=== PATIENT | male | born 1975 | race Caucasian/White ===

== ENCOUNTER 2019-10-13 14:13 | Emergency (ER) | payer SELFPAY ==
--- NOTE | 2019-10-13 15:01 | ER Document Report ---
HPI - HPI Patient complains to provider of: Dental pain Time Seen by Provider: 10/13/19 14:58 Onset: Other - 3 days ago Quality of pain: Achy Context: This 44-year-old male presents emergency department left upper dental pain that started 3 days ago. Reports it hurts when he eats or drinks. Patient denies fever vomiting diarrhea. Reports he recently moved here and needs to find a dentist. Associated Symptoms: None Exacerbated by: Denies Relieved by: Denies Similar symptoms previously: Yes Recently seen / treated by doctor: No Past Medical History - General Information source: Patient - Social History Smoking Status: Unknown if Ever Smoked Family History: None Patient has suicidal ideation: No Patient has homicidal ideation: No - Medical History Medical History: Negative Surgical Hx: Negative Vertical Provider Document - INFECTION CONTROL TRAVEL OUTSIDE OF THE [place] IN LAST 30 DAYS: No - HEENT HEENT: Atraumatic, Normocephalic Mouth Diagram: 1 - Patient complains of pain no obvious swelling no pustule no erythema opens mouth wide no trismus good clear voice no Ludwigs - NECK Neck: Normal Inspection, Supple. negative: Lymphadenopathy-Left, Lymphadenopathy-Right - RESPIRATORY Respiratory: Breath Sounds Normal, No Respiratory Distress - CARDIOVASCULAR Cardiovascular: Regular Rate - MUSCULOSKELETAL/EXTREMETIES Musculoskeletal/Extremeties: MAEW, FROM - NEURO Level of Consciousness: Awake, Alert, Appropriate Motor/Sensory: No Motor Deficit - DERM Integumentary: Warm, Dry Course - Re-evaluation Re-evalutation: 10/13/19 15:19 Patient was instructed on penicillin. He reports he is taken penicillin past without problems. Patient was also instructed on the [facility]. He was instructed take Tylenol or Motrin for the pain call the dentist tomorrow for an appointment. He verbalized understanding to all instructions - Vital Signs Vital signs: Temp Pulse Resp BP Pulse Ox 97.6 F 63 18 103/62 99 10/13/19 14:37 10/13/19 14:37 10/13/19 14:37 10/13/19 14:37 10/13/19 14:37 Discharge - Discharge Clinical Impression: Pain, dental Condition: Stable Disposition: HOME, SELF-CARE Instructions: [facility], Penicillin V K ([facility]), Toothache ([facility]) Additional Instructions: *You have been evaluated for dental pain *Take medications as prescribed *Follow up with dentist within one week *Return to ED for worsening condition, changes, needs Prescriptions: Penicillin V Potassium [Penicillin Vk 500 mg Tablet] 500 mg PO BID #20 tablet
[2019-10-13 15:10] VITALS: BP 90/56
== END 2019-10-13 15:24 | disposition home or self-care (01) ==
LOC: ER 14:13
DX: K08.9 Disorder of teeth and supporting structures, unspecified (principal)
CPT/HCPCS: 99282

== ENCOUNTER 2020-03-29 14:43 | Emergency (ER) | payer SELFPAY ==
--- NOTE | 2020-03-29 15:32 | ER Document Report ---
ED Medical Screen (RME) - General Chief Complaint: Abscess Stated Complaint: ABSCESS/LOWER BACK Time Seen by Provider: 03/29/20 15:26 Mode of Arrival: Ambulatory Information source: Patient Notes: 45-year-old male presented to ED for abscess to the lower right back. He states is been there for a week. He states it popped about 4 to 5 days ago and then in the last 24 to 48 hours it is swollen back up and is now painful again. He states his pain is fluctuated between a 2 and a 4 right now it is about a 3. He states he smokes 1/2 pack a day does not drink alcohol does smoke pot occasion ally. Only medical history is a fractured nose. Is alert oriented respirations regular nonlabored speaking in full sentences. I have greeted and performed a rapid initial assessment of this patient. A comprehensive ED assessment and evaluation of the patient, analysis of test results and completion of medical decision making process will be conducted by an additional ED providers. TRAVEL OUTSIDE OF THE [place] IN LAST 30 DAYS: No - Related Data Allergies/Adverse Reactions: No Known Allergies Allergy (Verified 03/29/20 15:30) Past Medical History - Social History Chew tobacco use (# tins/day): No Frequency of alcohol use: Occasional Drug Abuse: Marijuana Physical Exam - Vital signs Vitals: Temp Pulse Resp BP Pulse Ox 99.4 F 61 18 110/60 98 03/29/20 15:27 03/29/20 15:27 03/29/20 15:27 03/29/20 15:27 03/29/20 15:27 Course - Vital Signs Vital signs: Temp Pulse Resp BP Pulse Ox 99.7 F 61 18 110/60 98 03/29/20 15:28 03/29/20 15:27 03/29/20 15:27 03/29/20 15:27 03/29/20 15:27
[2020-03-29] MEDS ORDERED: LIDOCAINE 1%/EPINEPHRINE INJ 20 ML VIAL INJ ONE (18:39)
--- NOTE | 2020-03-29 18:41 | ER Document Report ---
ED General - General Chief Complaint: Abscess Stated Complaint: ABSCESS/LOWER BACK Time Seen by Provider: 03/29/20 15:26 Mode of Arrival: Ambulatory Notes: CHIEF COMPLAINT: Abscess to the back for several weeks HPI: 45-year-old male presenting to the emergency department complaining of a tender swollen area to the right lower back over the last several weeks. Patient states the area has drained intermittently but has become more painful over the last for 5 days. No fevers. ROS: See HPI - all other systems were reviewed and are otherwise negative Constitutional: no fever Integumentary: no rash, positive abscess Allergy: no hives Musculoskeletal: no extremity pain or swelling MEDICATIONS: I agree with the patient medications as charted by the RN. ALLERGIES: I agree with the allergies as charted by the RN. PAST MEDICAL HISTORY/PAST SURGICAL HISTORY: Reviewed and agree as charted by RN. SOCIAL HISTORY: Reviewed and agree as charted by RN. FAMILY HISTORY: No significant familial comorbid conditions directly related to patient complaint EXAM: Reviewed vital signs as charted by RN. CONSTITUTIONAL: Alert and oriented and responds appropriately to questions. Well-appearing; well-nourished HEAD: Normocephalic; atraumatic EYES: PERRL; Conjunctivae clear, sclerae non-icteric ENT: normal nose; no rhinorrhea; moist mucous membranes NECK: Supple without meningismus CARD: symmetric distal pulses RESP: Normal chest excursion without splinting or tachypnea ABD/GI: non-distended BACK: The back appears normal EXT: Normal ROM in all joints; non-tender to palpation; no cyanosis, no effusions, no edema SKIN: Normal color for age and race; warm; dry; good turgor; there is a raised erythematous area with a small fluctuant center measuring approximately 3 cm total diameter without significant surrounding erythema. This is in the right lower lumbar back NEURO: Moves all extremities equally; Motor and sensory function intact PSYCH: The patient's mood and manner are appropriate. Grooming and personal hygiene are appropriate. MDM: 45-year-old male with a small abscess to the right lower back. Small amount of induration and fluctuance. I did incise the area and packed the area. Will place patient on Bactrim, pain medication, follow-up with a PCP or he may remove the packing in 3 days TRAVEL OUTSIDE OF THE [place] IN LAST 30 DAYS: No - Related Data Allergies/Adverse Reactions: No Known Allergies Allergy (Verified 03/29/20 15:30) Past Medical History - General Information source: Patient - Social History Smoking Status: Current Every Day Smoker Chew tobacco use (# tins/day): No Frequency of alcohol use: Occasional Drug Abuse: Marijuana Family History: None Patient has homicidal ideation: No Past Surgical History: Reports: Hx Nose Surgery Physical Exam - Vital signs Vitals: Temp Pulse Resp BP Pulse Ox 99.4 F 61 18 110/60 98 03/29/20 15:27 03/29/20 15:27 03/29/20 15:27 03/29/20 15:27 03/29/20 15:27 Course - Vital Signs Vital signs: Temp Pulse Resp BP Pulse Ox 99.7 F 61 18 110/60 98 03/29/20 15:28 03/29/20 15:27 03/29/20 15:27 03/29/20 15:27 03/29/20 15:27 Procedures - Incision and Drainage Right Lower Back Time completed: 19:07 Type: Simple Anesthetic type: 1% Lidocaine w/epi mL's of anesthetic: 1 Blade size: 11 I&D procedure: Betadine prep applied, Iodoform packing placed, Sterile dressing applied Incision Method: Incision made by scalpel Amount/type of drainage: Scant purulent less than 1 cc Discharge - Discharge Clinical Impression: Abscess of lower back Condition: Stable Disposition: HOME, SELF-CARE Instructions: Trimethoprim-Sulfa ([facility]), Abscess ([facility]) Additional Instructions: 1. packing out in 2-3 days, the abscess was superficial you may pull the packing yourself 2. follow up with your primary care provider for further evaluation in 2-3 days 3. medicines as prescribed, take Adrian or Motrin for pain 4. return sooner for any worsening condition, increasing redness or onset of fever 5. apply warm compresses to the wound area 2-3 times daily Prescriptions: Sulfamethoxazole/Trimethoprim [Bactrim Ds Tablet] 2 tab PO BID #28 tablet Naproxen 500 mg PO BID PRN #14 tablet PRN Reason: Referrals: JOHN HARRY MD [ACTIVE STAFF] - Follow up as needed
[2020-03-29] MEDS ORDERED: ONDANSETRON 4 MG TAB.RAPDIS ONE (18:57)
[2020-03-29] MEDS ORDERED: SULFAMETHOXAZOLE/TRIMETHOPRIM 800-160 MG TABLET PO ONE (19:11)
[2020-03-29] MEDS ORDERED: HYDROCODONE/ACETAMINOPHEN 5-325 MG (6 TAB/ER DISP) PO PRN (19:11)
[2020-03-29 19:48] VITALS: BP 103/55
== END 2020-03-29 19:51 | disposition home or self-care (01) ==
LOC: ER 14:43
DX: L02.212 Cutaneous abscess of back [any part, except buttock and flank] (principal); F17.200 Nicotine dependence, unspecified, uncomplicated; F12.10 Cannabis abuse, uncomplicated
CPT/HCPCS: 99282; 10060; S0119; J3490

== ENCOUNTER 2020-04-01 12:24 | Emergency (ER) | payer SELFPAY ==
--- NOTE | 2020-04-01 13:02 | ER Document Report ---
ED Medical Screen (RME) - General Chief Complaint: Wound Recheck Stated Complaint: ABSCESS/LOWER BACK Time Seen by Provider: 04/01/20 12:55 Notes: Patient is a 45-year-old male who presents to the emergency department with an abscess recheck. He was here 3 days ago and had an abscess drained and packed. Patient states that he has not had the packing removed, nor did he see it when he removed the dressing. Patient admits to chills and cold sweats. Exam: Abscess noted to right lower back. Surrounding cellulitis noted. I have greeted and performed a rapid initial assessment of this patient. A comprehensive ED assessment and evaluation of the patient, analysis of test results and completion of medical decision making process will be conducted by an additional ED providers. TRAVEL OUTSIDE OF THE [place] IN LAST 30 DAYS: No - Related Data Allergies/Adverse Reactions: No Known Allergies Allergy (Verified 04/01/20 12:50) Past Medical History - Social History Chew tobacco use (# tins/day): No Frequency of alcohol use: None Drug Abuse: Marijuana Past Surgical History: Reports: Hx Nose Surgery Physical Exam - Vital signs Vitals: Temp Pulse Resp BP Pulse Ox 99.2 F 87 16 103/65 97 04/01/20 12:28 04/01/20 12:28 04/01/20 12:28 04/01/20 12:28 04/01/20 12:28 Course - Vital Signs Vital signs: Temp Pulse Resp BP Pulse Ox 99.2 F 87 16 103/65 97 04/01/20 12:51 04/01/20 12:28 04/01/20 12:28 04/01/20 12:28 04/01/20 12:28
[2020-04-01 13:20] LABS: ABSOLUTE LYMPHOCYTES (AUTO) 1.4 10^3/uL (0.5-4.7); ABSOLUTE MONOCYTES (AUTO) 0.5 10^3/uL (0.1-1.4); ABSOLUTE NEUT (AUTO) 7.6 10^3/uL (1.7-8.2); BASOPHILS % (AUTO) 0.2 % (0-2); EOSINOPHILS % (AUTO) 0.2 % (0-6); HEMATOCRIT 41.7 % (37.9-51.0); HEMOGLOBIN 14.6 g/dL (13.5-17.0); LYMPHOCYTES % (AUTO) 14.6 % (13-45); MEAN CORPUSCULAR HGB CONC 35.1 g/dL (32.0-36.0); MEAN CORPUSCULAR VOLUME 94 fl (80-97); MONOCYTES % (AUTO) 5.4 % (3-13); PLATELET COUNT 302 10^3/uL (150-450); RED BLOOD COUNT 4.44 10^6/uL (4.35-5.55); RED CELL DISTRIBUTION WIDTH 13.1 % (11.5-14.0); SEGMENTED NEUTROPHILS % (AUTO) 79.6 % (42-78); TOTAL CELLS COUNTED % (AUTO) 100 %; WHITE BLOOD COUNT 9.6 10^3/uL (4.0-10.5)
[2020-04-01 13:40] LABS: ANION GAP 7 (5-19); BLOOD UREA NITROGEN 22 mg/dL (7-20); CALCIUM 10.2 mg/dL (8.4-10.2); CARBON DIOXIDE 28 mmol/L (22-30); CHLORIDE 100 mmol/L (98-107); GLUCOSE 139 mg/dL (75-110); POTASSIUM 4.3 mmol/L (3.6-5.0)
[2020-04-01] MEDS ORDERED: LIDOCAINE 1%/EPINEPHRINE INJ 20 ML VIAL INJ ONE (16:37)
--- NOTE | 2020-04-01 16:40 | ER Document Report ---
ED General - General Chief Complaint: Wound Recheck Stated Complaint: ABSCESS/LOWER BACK Time Seen by Provider: 04/01/20 12:55 Primary Care Provider: LESLIE BELL MD [ACTIVE STAFF] - Follow up as needed DOREEN GERARDO MD [ACTIVE STAFF] - Follow up as needed Mode of Arrival: Ambulatory Information source: Patient TRAVEL OUTSIDE OF THE [place] IN LAST 30 DAYS: No - HPI Onset: Last week Onset/Duration: Gradual Quality of pain: Pressure, Throbbing Severity: Moderate Pain Level: 2 Associated symptoms: Chills, Fever, Other - swollen red area on low back Exacerbated by: Other - palpation of the area Relieved by: Denies Similar symptoms previously: Yes - Patient had an abscess in this area which was just incised. Recently seen / treated by doctor: Yes - Patient seen in this ER on 03/29/20 for an incision and drainage. Notes: 45 year old male with no significant PMH here in the ER concern of a worsening abscess on his low back. The patient was seen in this ER on and had an incision and drainage with packing placement of the area then. The patient is unsure if the packing has falling out or if it is still present in his wound. The patient says he has been having some chills and subjective fevers. - Related Data Allergies/Adverse Reactions: No Known Allergies Allergy (Verified 04/01/20 12:50) Past Medical History - General Information source: Patient - Social History Smoking Status: Current Every Day Smoker Chew tobacco use (# tins/day): No Frequency of alcohol use: None Drug Abuse: Marijuana Family History: Reviewed & Not Pertinent Patient has suicidal ideation: No Patient has homicidal ideation: No Past Surgical History: Reports: Hx Nose Surgery Review of Systems - Review of Systems Constitutional: Chills, Fever EENT: No symptoms reported Cardiovascular: No symptoms reported Respiratory: No symptoms reported Gastrointestinal: No symptoms reported Genitourinary: No symptoms reported Male Genitourinary: No symptoms reported Skin: Other - painful, red, swollen area in low back Hematologic/Lymphatic: No symptoms reported Neurological/Psychological: No symptoms reported -: Yes All other systems reviewed and negative Physical Exam - Vital signs Vitals: Temp Pulse Resp BP Pulse Ox 99.2 F 87 16 103/65 97 04/01/20 12:28 04/01/20 12:28 04/01/20 12:04/01/20 12:04/01/20 12:28 - Notes Notes: GENERAL: Well-appearing, well-nourished and in no acute distress. HEAD: Atraumatic, normocephalic. EYES: Pupils equal round and reactive to light, extraocular movements intact, sclera anicteric, conjunctiva are normal. ENT: External ears normal, nares patent, oropharynx clear without exudates. Moist mucous membranes. NECK: Normal range of motion, supple without lymphadenopathy or JVD. LUNGS: Breath sounds clear to auscultation bilaterally and equal. No wheezes rales or rhonchi. HEART: Regular rate and rhythm without murmurs, rubs or gallops. ABDOMEN: Soft, nontender, normoactive bowel sounds. No guarding, no rebound. No masses appreciated. EXTREMITIES: Normal range of motion, no pitting or edema. No clubbing or cyanosis. NEUROLOGICAL: Cranial nerves II through XII grossly intact. Normal speech, normal gait. PSYCH: Normal mood, normal affect. SKIN: Area of redness, warmth, and swelling about the size of a golf ball on his lower back. Otherwise skin is warm, dry, normal turgor, no rashes or lesions noted. Course - Re-evaluation Re-evalutation: 04/01/20 17:08 The patient has a sebaceous cyst of his low back which has become infected. It was just incised and drained several days ago. I re-incised the area today and drained more pus and more cystic material. There is still residual cystic material since the patient would not allow me to continue removing it all due to pain. The wound was left open for nursing to dress. The patient was told he needs to follow up with a Surgeon in the next few days for Surgical Excision of the whole area. The patient was told he will continue to have abscesses in this area until all of the cystic material is excised. The patient was told to cont inue taking his previously prescribed Bactrim and to use Tylenol and Motrin for pain. - Vital Signs Vital signs: Temp Pulse Resp BP Pulse Ox 99.2 F 87 16 103/65 97 04/01/20 12:51 04/01/20 12:28 04/01/20 12:28 04/01/20 12:28 04/01/20 12:28 - Laboratory Result Diagrams: 04/01/20 13:10 04/01/20 13:10 Laboratory results interpreted by me: 04/01/20 04/01/20 13:10 13:10 Seg Neutrophils % 79.6 H Sodium 134.9 L BUN 22 H Glucose 139 H Procedures - Incision and Drainage Lower Back Type: Complex - due to underlying cyst Anesthetic type: 1% Lidocaine w/epi mL's of anesthetic: 7 Blade size: 11 I&D procedure: Betadine prep applied Incision Method: Incision made by scalpel Amount/type of drainage: moderate Notes: 04/01/20 17:07 There is underlying cystic material which I was unable to completely removed since patient did not tolerate the procedure well Discharge - Discharge Clinical Impression: Sebaceous cyst, Abscess Condition: Stable Disposition: HOME, SELF-CARE Instructions: Abscess ([facility]), Post Incision and Drainage Additional Instructions: Finish your previously prescribed antibiotic (Bactrim). Try to express as much drainage from your back wound as possible while in the shower. Follow up with a Surgeon (Dr. Bell or Dr. Gerardo) for Surgical Management of your back cyst/abscess. Keep your wound covered in antibiotic and dressing until it has healed. Use Tylenol and Motrin for pain. Your back cyst/abscess is likely to recur until you have the whole cyst removed surgically. Referrals: LESLIE BELL MD [ACTIVE STAFF] - Follow up as needed DOREEN GERARDO MD [ACTIVE STAFF] - Follow up as needed
[2020-04-01] MEDS ORDERED: ONDANSETRON 4 MG TAB.RAPDIS PO ONE (16:50)
[2020-04-01 17:40] VITALS: BP 110/74
== END 2020-04-01 17:10 | disposition home or self-care (01) ==
LOC: ER 12:24
PROC: 0H96XZZ Drainage of Back Skin, External Approach (ICD-10-PCS; principal; 2020-04-01)
DX: L72.3 Sebaceous cyst (principal); L02.212 Cutaneous abscess of back [any part, except buttock and flank]; R50.9 Fever, unspecified; M54.5 Low back pain; F17.200 Nicotine dependence, unspecified, uncomplicated
CPT/HCPCS: 99283; 36415; 83605; 85025; 80048; 10060; S0119; J3490